=== PATIENT | female | born 1975 ===

== ENCOUNTER 2022-04-10 13:22 | Outpatient (CLI) | payer OTHER ==
--- NOTE | 2022-04-10 15:35 | Ultrasound Report ---
LEFT DIGITAL DIAGNOSTIC MAMMOGRAM WITH CAD , 04/10/2022 LEFT LIMITED BREAST ULTRASOUND CLINICAL INFORMATION / INDICATION: 47-year-old female who presents for evaluation of palpable left br east mass. TECHNIQUE: Digital left mammographic imaging was performed. Spot compression views were obtained. Duran it ultrasound was performed. This examination was interpreted with the benefit of Computer-Aided De tection (CAD) analysis. COMPARISON: None available FINDINGS: Breast Density: The breasts are heterogeneously dense, which may obscure small masses. MAMMOGRAPHIC FINDINGS: There is a 1 cm focal asymmetry in the upper inner quadrant of the left breast corresponding to the palpable lump. The remainder of the left breast is unremarkable.. ULTRASOUND FINDINGS: Targeted ultrasound evaluation was performed of the area of interest. Sonograp hic evaluation of the palpable area in the left breast demonstrates a simple cyst at 9:00, 5 cm from nipple, measuring 8 mm. This corresponds to the mammographic abnormality as well as the palpable lump . IMPRESSION: No mammographic or sonographic evidence of malignancy in the left breast. The palpable ericka mp is proven to be a small simple cyst. Follow up recommendation: Back to schedule. BI-RADS Category 2: BENIGN. A "normal" or negative report should not discourage follow up or biopsy of a clinically significant f inding. A written summary of these findings will be mailed to the patient. The patient will be entered into a mammography reporting system which will generate a reminder letter for the patient's next appointmen t at the appropriate interval. According to the [employer], yearly mammograms are recommended starting at age 40 and continuing as long as a woman is in good health. Breast MRI is recommended for women with an brandon roximately 20-25% or greater lifetime risk of breast cancer, including women with a strong family his tory of breast or ovarian cancer and women who have been treated for Hodgkin's disease. Signer Name: Bridget Hi MD Signed: 04/10/2022 3:30 PM Workstation Name: [id number]
== END 2022-04-10 13:23 | disposition home or self-care (01) ==
LOC: MAMMO 13:22
PROVIDERS: ATTEND Internal Medicine
DX: N64.89 Other specified disorders of breast (principal)